=== PATIENT | male | born 1970 | race Caucasian/White ===

== ENCOUNTER 2017-07-15 20:20 | Emergency (ER) | payer SELFPAY ==
[2017-07-16 07:02] VITALS: BP 140/73
== END 2017-07-16 07:02 | disposition home or self-care (01) ==
LOC: ED 20:20
DX: T51.91XA Toxic effect of unspecified alcohol, accidental (unintentional), initial encounter (principal); Y92.89 Other specified places as the place of occurrence of the external cause
CPT/HCPCS: G0480; J2405; J3411; J3475; J3490; J7030